=== PATIENT | female | born 1980 | race African-American/Black ===

== ENCOUNTER 2018-08-24 21:20 | Inpatient (IN) | payer OTHER ==
[2018-08-24] MEDS ORDERED: AMPICILLIN - 2 GM in SODIUM CHLORIDE 100 ML IVPB ONE (23:00)
[2018-08-24 23:19] VITALS: BMI 31.4
[2018-08-24 23:25] LABS: BASO % 0.3 % (0-2.0); EOS % 0.7 % (0-4.5); HEMATOCRIT 36.3 % (32.4-45.2); LYMPH % 12.3 % (8-40); MCH 28.4 pg (25.7-33.7); MEAN PLT VOLUME 8.2 fl (7.5-11.1); MONO % 11.2 % (3.8-10.2); NEUT % 75.5 % (42.8-82.8); PLATELET COUNT 198 K/MM3 (134-434); RBC 4.23 M/mm3 (3.60-5.2); WHITE BLOOD COUNT 8.7 K/mm3 (4.0-10.0)
[2018-08-24 23:39] LABS: ANION GAP 10 MMOL/L (8-16); BLOOD UREA NITROGEN 5 mg/dL (7-18); CHLORIDE 110 mmol/L (98-107); CO2 21 mmol/L (21-32); CREATININE 0.4 mg/dL (0.55-1.3); GLUCOSE,RANDOM 76 mg/dL (74-106); INR 0.88 (0.83-1.09); POTASSIUM 3.8 mmol/L (3.5-5.1); PROTHROMBIN TIME (PATIENT) 10.4 SEC (9.7-13.0); SODIUM 140 mmol/L (136-145)
[2018-08-24 23:42] LABS: ACTIVATED PTT 24.7 SECONDS (25.2-36.5)
[2018-08-24] MEDS ORDERED: OXYTOCIN 30 UNITS in 0.9% NS 30 UNIT/500 ML INFUS.BAG IVPB SCH (23:45)
[2018-08-24] MEDS ORDERED: DEXTROSE 5%-LACTATED RINGERS 1,000 ML IV SCH (23:45)
[2018-08-24] MEDS ORDERED: OXYTOCIN 30 UNITS in 0.9% NS 30 UNIT/500 ML INFUS.BAG IVPB ONE (23:56)
[2018-08-25] MEDS ORDERED: FENTANYL/BUPIVACAINE/NS/PF - PCEA - 50 ML DISP.SYRIN EP ONE (00:51)
[2018-08-25] MEDS: ELECTROLYTE-148 SOLN 1,000 ML IV SCH ×2 (01:00→03:00)
[2018-08-25] MEDS ORDERED: NALOXONE HCL 0.4 MG/ML VIAL IVPUSH PRN (01:56)
[2018-08-25] MEDS ORDERED: FENTANYL/BUPIVACAINE/NS/PF - PCEA - 50 ML DISP.SYRIN EP SCH ×2 (02:00→02:09)
[2018-08-25] MEDS ORDERED: AMPICILLIN SODIUM 1 GM VIAL ONE (02:49)
[2018-08-25] MEDS ORDERED: LIDOCAINE HCL 1% PRESERVATIVE FREE - 30ML VIAL ONE (02:49)
[2018-08-25] MEDS ORDERED: OXYTOCIN 20 UNITS in 0.9% NS 20 UNIT/1,000 ML INFUS.BAG IV ONE ×2 (02:50→05:47)
[2018-08-25] MEDS: AMPICILLIN - 1 GM in SODIUM CHLORIDE 100 ML IVPB SCH ×2 (03:00→13:43)
--- NOTE | 2018-08-25 03:39 | HP ---
Past Medical History - Admission History of Present Illness: 38 yo @ 39 3/7 wks by first trimester ultrasound, EDC 08/29/2018 complicated by: 1. Major depressive disorder - s/p multiple hospitalization (2001, 2002, 2004); on zoloft 150 mg daily; seeing Dr. Hammond ([facility]) Recent hospitalization April - May 2. Hx/o genital HSV - on daily suppression 3. AFP with increased risk of ONTD (MoM 4.35; n<2.5) Normal targeted anatomy 4. AMA - reassuring [id number] 5. 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 Prior delivery at 36 weeks - no [place] 7. GBS positive - no penicillin allergy Patient reports leakage of clear fluid, mild contractions. She reports movement, denies vaginal bleeding. History Source: Patient Limitations to Obtaining History: No Limitations - Past Medical History Cardiovascular: No: HTN Pulmonary: No: Asthma Gastrointestinal: No: GERD ...: 3 ...Para: 2 ...Term: 1 ...: 1 ...Spon : 0 ...Induced : 0 ...Multiple Gestation: 0 ...LMP: 11/21/17 ... Weeks Gestation by Dates: 39.3 ...EDC by Dates: 08/28/18 ...EDC by Sono: 08/29/18 Heme/Onc: No: Anemia - Past Surgical History Hx Myomectomy: No Hx Transabdominal Cerclage: No Additional Surgical History: [place] Teeth - Smoking History Smoking history: Former smoker Have you smoked in the past 12 months: Yes - Alcohol/Substance Use Hx Alcohol Use: No History of Substance Use: reports: None - Social History History of Recent Travel: No Home Medications - Allergies Allergies/Adverse Reactions: Allergies Allergy/AdvReac Type Severity Reaction Status Date / Time No Known Allergies Allergy Verified 08/24/18 22:43 - Home Medications Home Medications: Ambulatory Orders Vitamins (Sjr) - 1 tab PO DAILY 08/24/18 Sertraline HCl [Zoloft -] 150 mg PO DAILY 08/24/18 Valacyclovir HCl [Valtrex -] 500 mg PO BID 08/24/18 Family Disease History - Family Disease History Family History: Denies Review of Systems - Review of Systems Constitutional: reports: No Symptoms Cardiovascular: reports: No Symptoms Respiratory: reports: No Symptoms Gastrointestinal: reports: No Symptoms Genitourinary: reports: No Symptoms Neurological: reports: No Symptoms Endocrine: reports: No Symptoms Psychiatric: reports: No Symptoms Physical Exam - Maternity Vital Signs: Vital Signs Temperature 98.5 F 08/25/18 01:00 Pulse Rate 91 H 08/25/18 02:45 Respiratory Rate 19 08/25/18 02:45 Blood Pressure 97/6 L 08/25/18 02:45 O2 Sat by Pulse Oximetry (%) 100 08/25/18 02:45 Constitutional: Yes: Well Nourished, No Distress Cardiovascular: Yes: Regular Rate and Rhythm Lungs: Clear to auscultation - Abdominal Exam/OB Fundal Height: 40 Number of Fetuses: Single Contractions: Yes Regularity: Regular Intensity: Mild/Mod Category: I Accelerations: Non-Uniform Decelerations: None - Physical Exam Edema: No ...Motor Strength: WNL Psychiatric: Yes: Alert, Oriented - Labs Lab Results: CBC, BMP 08/24/18 23:00 08/24/18 23:00 PNL: O positive, antibody negative; HIV neg; RPR NR; HBs Ag neg; HCV neg; Rubella Immune; Varicella Immune; SMA negative, CF carrier (as above); Fx negative; [id number] WNL, AFP elevated (as above); GCT WNL; GBS positive Hemorrhage Risk Assessment - Risk Factors Medium Risk Factors: Yes: None High Risk Factors: Yes: None Risk Score: 1 Risk Level: Medium Risk Assessment/Plan 38 yo @ 39 3/7 wks, PROM, mild contractiosn 1. Admit to L&D 2. Plan for augmentation with pitocin 3. GBS positive, will start ampicllin 4. Will offer pain control upon request 5. Will proceed with expectant management
--- NOTE | 2018-08-25 04:54 | PN ---
Delivery - Delivery Vaginal Delivery: No Problems Type of Anesthesia: Epidural Episiotomy/Laceration: None EBL (cc): 400 Delivery, Single - Stages of Labor Date 1st Stage Initiatied: 08/25/18 Time 1st Stage Initiated: 00:30 Date 2nd Stage Initiated: 08/25/18 Time 2nd Stage Initiated: 04:22 Date of Delivery: 08/25/18 Time of Delivery: 04:32 Date Placenta Delivered: 08/25/18 Time Placenta Delivered: 04:40 Placenta: Yes: Spontaneous - Condition of Infant Gender: Female Position: Right, OA Total Hours ROM (Hrs/Mins): 7 hours 40 minutes - 1 Minute Total Score: 9 5 Minutes Total Score: 9 - [place] Feeding Plan Initial Plan: Elected not to breastfeed exclusively throughout hospitalization Remarks - Remarks Remarks: Patient progressed to fully dilated and at 0432 via delivered a viable female infant in MICA position, APGARs 9,9. Weight and length unknown at this time. Head delivered spontaneously followed by shoulders and body without difficulty. with spontaneous cry and placed on mother's abdomen. Nose and mouth was bulb suctioned. Cord was clamped and cut. Perineum and vagina examined, No lacerations were noted Placenta was delivered spontaneously and intact. 20 units of pitocin in 1 L IVF was given. All counts correct x 2. Mother and stable in LDR. EBL 400cc.
[2018-08-25] MEDS ORDERED: SENNOSIDES/DOCUSATE COMBO (SENNA PLUS) TABLET (UD) PO PRN (21:18)
[2018-08-25] MEDS ORDERED: WITCH HAZEL 50% (TUCKS) 40 PAD/JAR PAD TP PRN (21:19)
[2018-08-25] MEDS ORDERED: BISACODYL 10 MG SUPP.RECT RC PRN (21:19)
[2018-08-25] MEDS ORDERED: BENZOCAINE 28 GM HEMORRHOIDAL OINTMENT TP PRN (21:19)
[2018-08-25] MEDS ORDERED: BENZOCAINE 20% 57 GM BOTTLE TP PRN (21:19)
[2018-08-25] MEDS ORDERED: METHYLERGONOVINE MALEATE 0.2 MG/1 ML AMP IM PRN (21:20)
--- NOTE | 2018-08-26 08:29 | PN ---
Post Progress Note - Subjective Subjective: Patient without acute complaints. Reports tolerating oral intake without nausea or vomiting. Ambulating without dizziness. Denies fevers or chills. Pain well controlled with oral pain medication. without difficulty. Passing flatus. Post Day: 1 Type of Delivery: Vital Signs: Vital Signs Temperature 97.9 F 08/26/18 01:47 Pulse Rate 68 08/26/18 01:47 Respiratory Rate 18 08/26/18 01:47 Blood Pressure 107/57 L 08/26/18 01:47 O2 Sat by Pulse Oximetry (%) 100 08/25/18 04:15 Breast Exam: Yes: Soft Uterus: Yes: Fundus Firm, Fundus below umbilicus Abdomen/GI: Yes: Abdomen soft, Passing flatus. No: Abdominal Distention, Tender Lochia: Yes: Serosa Extremities: Yes: Calves non-tender. No: Edema Activity: Ambulating - Labs Labs: CBC WBC 8.7 K/mm3 (4.0-10.0) 08/24/18 23:00 RBC 4.23 M/mm3 (3.60-5.2) 08/24/18 23:00 Hgb 12.0 GM/dL (10.7-15.3) 08/24/18 23:00 Hct 36.3 % (32.4-45.2) 08/24/18 23:00 MCV 86.0 fl (80-96) 08/24/18 23:00 MCH 28.4 pg (25.7-33.7) 08/24/18 23:00 MCHC 33.0 g/dl (32.0-36.0) 08/24/18 23:00 RDW 16.0 % (11.6-15.6) H 08/24/18 23:00 Plt Count 198 K/MM3 (134-434) 08/24/18 23:00 MPV 8.2 fl (7.5-11.1) 08/24/18 23:00 Absolute Neuts (auto) 6.5 K/mm3 (1.5-8.0) 08/24/18 23:00 Neutrophils % 75.5 % (42.8-82.8) 08/24/18 23:00 Lymphocytes % 12.3 % (8-40) 08/24/18 23:00 Monocytes % 11.2 % (3.8-10.2) H 08/24/18 23:00 Eosinophils % 0.7 % (0-4.5) 08/24/18 23:00 Basophils % 0.3 % (0-2.0) 08/24/18 23:00 Nucleated RBC % 0 % (0-0) 08/24/18 23:00 Assessment/Plan 38 yo PPD # 1 s/p , afebrile, vital signs stable, doing well 1. Continue routine care. 2. Follow up AM CBC 3. Rh positive status, no rhogam indicated. 4. Encourage ambulation 5. Continue oral pain medication 6. Hx/o depression, on zoloft - mood stable Social work consult today 7. Anticipate discharge home day #2
[2018-08-26] MEDS: ACETAMINOPHEN 325 MG TABLET (FP) PO PRN (10:01)
[2018-08-26] MEDS: IBUPROFEN 600 MG TABLET (FP) PO PRN (10:01)
[2018-08-26 10:09] LABS: HEMATOCRIT 36.1 % (32.4-45.2); HEMOGLOBIN 11.6 GM/dL (10.7-15.3); MCH 27.8 pg (25.7-33.7); MCHC 32.2 g/dl (32.0-36.0); MEAN CELL VOLUME 86.5 fl (80-96); MEAN PLT VOLUME 8.4 fl (7.5-11.1); PLATELET COUNT 174 K/MM3 (134-434); RBC 4.17 M/mm3 (3.60-5.2); WHITE BLOOD COUNT 10.6 K/mm3 (4.0-10.0)
[2018-08-27] MEDS: IBUPROFEN 600 MG TABLET (FP) PO PRN (03:22)
[2018-08-27] MEDS: ACETAMINOPHEN 325 MG TABLET (FP) PO PRN (03:22)
[2018-08-27 08:39] VITALS: BP 115/78; PULSE 71; TEMP 97.8
--- NOTE | 2018-08-27 09:50 | PN ---
Post Progress Note - Subjective Subjective: Patient without acute complaints. Reports tolerating oral intake without nausea or vomiting. Ambulating without dizziness. Denies fevers or chills. Pain well controlled with oral pain medication. without difficulty. Passing flatus. Post Day: 2 Type of Delivery: Vital Signs: Vital Signs Temperature 97.8 F 08/27/18 07:15 Pulse Rate 71 08/27/18 07:15 Respiratory Rate 20 08/27/18 07:15 Blood Pressure 115/78 08/27/18 07:15 O2 Sat by Pulse Oximetry (%) 100 08/25/18 04:15 Breast Exam: Yes: Engorged, Cracked Nipples (bilaterally ) Uterus: Yes: Fundus Firm Abdomen/GI: Yes: Abdomen soft, Passing flatus, Tolerating PO. No: Abdominal Distention, Tender Lochia: Yes: Serosa Lochia, amount: Small Extremities: Yes: Calves non-tender, Edema (trace) Perineum: Yes: Intact Activity: Ambulating - Labs Labs: CBC WBC 10.6 K/mm3 (4.0-10.0) H 08/26/18 09:45 RBC 4.17 M/mm3 (3.60-5.2) 08/26/18 09:45 Hgb 11.6 GM/dL (10.7-15.3) 08/26/18 09:45 Hct 36.1 % (32.4-45.2) 08/26/18 09:45 MCV 86.5 fl (80-96) 08/26/18 09:45 MCH 27.8 pg (25.7-33.7) 08/26/18 09:45 MCHC 32.2 g/dl (32.0-36.0) 08/26/18 09:45 RDW 16.0 % (11.6-15.6) H 08/26/18 09:45 Plt Count 174 K/MM3 (134-434) 08/26/18 09:45 MPV 8.4 fl (7.5-11.1) 08/26/18 09:45 Absolute Neuts (auto) 6.5 K/mm3 (1.5-8.0) 08/24/18 23:00 Neutrophils % 75.5 % (42.8-82.8) 08/24/18 23:00 Lymphocytes % 12.3 % (8-40) 08/24/18 23:00 Monocytes % 11.2 % (3.8-10.2) H 08/24/18 23:00 Eosinophils % 0.7 % (0-4.5) 08/24/18 23:00 Basophils % 0.3 % (0-2.0) 08/24/18 23:00 Nucleated RBC % 0 % (0-0) 08/24/18 23:00 Assessment/Plan 38 yo PPD # 1 s/p , afebrile, vital signs stable,stable for discharge home today 1. Patient stable for discharge home today. 2. Patient encouraged to contact MD for: - Severe pain not controlled by oral pain medication - Fevers or chills - Nausea or vomiting, intolerance of oral intake 3. Hx/o major depression, mood stable Risk factors for PPD discussed Safety contract discussed 4. Plan to follow up in 3-4 weeks visit
--- NOTE | 2018-08-27 09:54 | DS ---
Physical Exam-[employer] Vital Signs: Vital Signs Temperature 97.8 F 08/27/18 07:15 Pulse Rate 71 08/27/18 07:15 Respiratory Rate 20 08/27/18 07:15 Blood Pressure 115/78 08/27/18 07:15 O2 Sat by Pulse Oximetry (%) 100 08/25/18 04:15 Labs: CBC, BMP 08/26/18 09:45 08/24/18 23:00 Delivery - Delivery Vaginal Delivery: No Problems Type of Anesthesia: Epidural Episiotomy/Laceration: None EBL (cc): 400 Delivery, Single - Stages of Labor Date 1st Stage Initiatied: 08/25/18 Time 1st Stage Initiated: 00:30 Date 2nd Stage Initiated: 08/25/18 Time 2nd Stage Initiated: 04:22 Date of Delivery: 08/25/18 Time of Delivery: 04:32 Time Placenta Delivered: 04:40 Placenta: Yes: Spontaneous - Condition of Computer Systems Analyst/Guitar Technician Present: No Infant Gender: Female Weight: 6 lb 13 oz Position: Right, OA Total Hours ROM (Hrs/Mins): 7 hours 40 minutes - 1 Minute Total Score: 9 5 Minutes Total Score: 9 - Feeding Plan Initial Plan: Elected not to breastfeed exclusively throughout hospitalization Discharge Summary Reason For Visit: LABOR Current Active Problems AMA (advanced maternal age) multigravida 35+ (Acute) Depression (Acute) Vaginal delivery (Acute) Procedures: Principal: vaginal delivery Other Procedures: augmentation with pitocin Hospital Course: Patient was admitted with PROM, early labor. She was started on pitocin augmentation and proceeded to deliver via a viable female . PPD # 1 patient ambulated, voiding, passing gas, tolerating oral intake and with adequate pain control. She was restarted on her outpatient meds, mood stable and had a SW consult. Plan for VNS after discharge, close follow up with therapist 1 week after discharge, close follow up in our office She fulfilled all criteria for discharge PPD #2 Condition: Good - Instructions Diet, Activity, Other Instructions: Physical activity Resume your normal everyday activity as tolerated no heavy lifting or exercise until seen by your surgeon. You may walk unlimited leigh ann of and climb stairs. You may resume driving the car when you feel safe and comfortable behind the wheel. No sexual activity as instructed. Diet There are no dietary restrictions. Eat healthy, high-fiber foods. Drink 6 to 8 glasses of liquid each day. This will assist in keeping your bowels are regular. Pain management You may take Tylenol or acetaminophen or Ibuprofen (for example, Motrin, Advil etc.) from my pain prescription medication is ordered should be taken as prescribed for moderate to severe pain. Call MD for any of the following: Severe pain not relieved by medication Fever of 101 or higher Excessive bleeding or drainage on dressing Inability to urinate Worsening of mood or depressive symptoms Referrals: Mayda Bang MD [Staff Physician] - Nils Emanuel MD [Staff Physician] - Disposition: HOME - Home Medications Comprehensive Discharge Medication List: Ambulatory Orders Vitamins (Sjr) - 1 tab PO DAILY 08/24/18 Sertraline HCl [Zoloft -] 150 mg PO DAILY 08/24/18 Valacyclovir HCl [Valtrex -] 500 mg PO BID 08/24/18
== END 2018-08-27 12:25 | disposition home or self-care (01) | DRG 807 ==
LOC: JLDR 21:20 → J3W 08-25 06:05
PROVIDERS: ADMIT Obstetrics & Gynecology; ATTEND Obstetrics & Gynecology
PROC: 10E0XZZ Delivery of Products of Conception, External Approach (ICD-10-PCS; principal; 2018-08-25)
DX: O42.92 Full-term premature rupture of membranes, unspecified as to length of time between rupture and onset of labor (principal); Z37.0 Single live birth; O99.343 Other mental disorders complicating pregnancy, third trimester; F32.9 Major depressive disorder, single episode, unspecified; Z3A.39 39 weeks gestation of pregnancy; Z22.330 Carrier of Group B streptococcus
CPT/HCPCS: 36415; 59409; 80048; 85025; 85027; 85610; 85730; 86593; 86850; 86900; 86901

== ENCOUNTER 2019-07-03 05:31 | Day surgery (SDC) | payer OTHER ==
[2019-07-02 15:35] VITALS: BMI 27.4
[2019-07-03] MEDS ORDERED: ACETAMINOPHEN 325 MG TABLET (FP) PO PRN (12:16)
[2019-07-03] MEDS ORDERED: IBUPROFEN 400 MG TABLET (FP) PO PRN (12:16)
[2019-07-03] MEDS ORDERED: oxyCODONE HCL 5 MG TABLET PO PRN (12:16)
[2019-07-03] MEDS ORDERED: ONDANSETRON 4 MG/2 ML VIAL IVPUSH PRN (12:17)
--- NOTE | 2019-07-03 12:22 | HP ---
Admitting History and Physical - Admission History of Present Illness: 38 yo desiring permanent sterilization, family history of ovarian cancer, for laparoscopic bilateral salpingectomy History Source: Patient Limitations to Obtaining History: No Limitations - Past Medical History Cardiovascular: No: HTN ...LMP Comment: 06/22/19 Psych: Yes: Depression (major depression, s/p hospitalization) - Past Surgical History Additional Past Surgical History: [place] Teeth - Smoking History Smoking history: Current every day smoker Have you smoked in the past 12 months: Yes Aproximately how many cigarettes per day: 10 - Alcohol/Substance Use Hx Alcohol Use: No History of Substance Use: reports: None - Social History History of Recent Travel: No Home Medications - Allergies Allergies/Adverse Reactions: Allergies Allergy/AdvReac Type Severity Reaction Status Date / Time lentils Allergy "hives, Verified 07/02/19 15:39 itchy throat" No Known Drug Allergies Allergy Verified 07/02/19 15:39 peas Allergy "hives,itchy Verified 07/02/19 15:39 throat" - Home Medications Home Medications: Ambulatory Orders Sertraline HCl [Zoloft -] 150 mg PO DAILY 08/24/18 Valacyclovir HCl [Valtrex -] 500 mg PO BID PRN 08/24/18 Family Disease History - Family Disease History Family History: Denies Review of Systems - Review of Systems Constitutional: reports: No Symptoms Cardiovascular: reports: No Symptoms Respiratory: reports: No Symptoms Gastrointestinal: reports: No Symptoms Breasts: reports: No Symptoms Reported Musculoskeletal: reports: No Symptoms Neurological: reports: No Symptoms Endocrine: reports: No Symptoms Psychiatric: reports: No Symptoms Physical Examination Constitutional: Yes: Well Nourished, No Distress, Calm Respiratory: Yes: Regular, CTA Bilaterally Gastrointestinal: Yes: Normal Bowel Sounds, Soft Psychiatric: Yes: Alert, Oriented Assessment/Plan 38 yo desiring permanent sterilization, family history of ovarian cancer, for laparoscopic bilateral salpingectomy 1. Consents reviewed and signed. Patient rejects all forms of non-permanent contraception 2. Preop labs reviewed 3. Ancef manager global communications 4. Will proceed with expectant management
[2019-07-03] MEDS ORDERED: LACTATED RINGERS SOLUTION 1,000 ML IV SCH (14:00)
[2019-07-03] MEDS ORDERED: BUPIVACAINE HCL/PF 0.5% (5 MG/ML) 30 ML VIAL IJ ONE (14:32)
[2019-07-03] MEDS ORDERED: ROCURONIUM BROMIDE 50 MG/5 ML SYRINGE ONE (14:50)
[2019-07-03] MEDS ORDERED: MIDAZOLAM HCL 2 MG/2 ML SINGLE DOSE VIAL ONE (14:50)
[2019-07-03] MEDS ORDERED: KETOROLAC TROMETHAMINE 30 MG/1 ML VIAL ONE (14:51)
[2019-07-03] MEDS ORDERED: PROPOFOL 20 ML ONE (15:06)
[2019-07-03] MEDS ORDERED: ALBUTEROL SO4 8 GM HFA INHALER IH ONE (15:08)
[2019-07-03] MEDS ORDERED: ceFAZolin SODIUM 1 GM VIAL IVPB ONE (15:25)
[2019-07-03] MEDS ORDERED: NEOSTIGMINE METHYLSULFATE 0.5 MG/ML - 10 ML MDV ONE (15:47)
[2019-07-03] MEDS ORDERED: GLYCOPYRROLATE 0.2 MG/1 ML VIAL ONE (15:47)
--- NOTE | 2019-07-03 16:39 | OP ---
Operative Note - Note: Operative Date: 07/03/19 Pre-Operative Diagnosis: desiring permanent sterilization Operation: laparoscopic bilateral salpingectomy Findings: normal appearing ovaries, fallopian tubes and uterus Post-Operative Diagnosis: Same as Pre-op Surgeon: Mayda Bang Environmental Protection Economist: Nils Emanuel Anesthesiologist/ASPHALT PAVING MACHINE OPERATOR: Dayanara Peck Anesthesia: General Specimens Removed: 1. Right fallopian tube; 2. Left fallopian tube Estimated Blood Loss (mls): 5 Drains, Volume Out (mls): 100 (urine output) Fluid Volume Replaced (mls): 1,200 Operative Report Dictated: Yes
[2019-07-03 18:33] VITALS: BP 119/74; PULSE 61; TEMP 97.9
--- NOTE | 2019-07-03 20:47 | OP ---
DATE OF OPERATION: 07/03/2019 PREOPERATIVE DIAGNOSIS: Desiring permanent sterilization. POSTOPERATIVE DIAGNOSIS: Desiring permanent sterilization. SURGEON: Arline Martinez M.D. IRRIGATING PUMP OPERATOR: Nils Emanuel M.D. ANESTHESIOLOGIST: JENY Peck ESTIMATED BLOOD LOSS: 5 URINE OUTPUT: 100 FLUIDS GIVEN: 1200 INDICATION: Patient is a 38-year-old desiring permanent sterilization and family history of ovarian cancer desiring permanent sterilization for undergoing bilateral salpingectomy. The risks, benefits, alternatives, and complications to procedure were discussed including infection, bleeding, damage to surrounding organs, uterine perforation. She expressed understanding, was brought to the operating room. DESCRIPTION OF PROCEDURE: When anesthesia was felt to be adequate, patient was prepped and draped in normal sterile fashion, placed in dorsal lithotomy position using Britton stirrups. A weighted speculum was placed in the patient's vagina. Vagina was retracted using Serrano retractor. Anterior lip of the cervix was grasped using an Allis clamp, and the cervix sufficiently dilated to accommodate a HUMI uterine manipulator which was placed. [place] was placed to gravity. Attention was brought to the abdomen. A 5-mm incision was made in the umbilicus and a Veress needle was used to confirm intraperitoneal placement, and the abdomen was insufflated using carbon dioxide gas to an operating pressure of 16 mmHg. The 5-mm trocar was placed under direct visualization. Attention was brought to the right lower quadrant, a 5-mm trocar was placed under direct visualization, and the left lower quadrant where a 5-mm trocar was placed under direct visualization. Evaluation of the abdominal cavity reveals mild adhesions to the anterior abdominal wall to the bowel. The uterus and ovaries and fallopian tubes were noted to be normal. Attention was brought to the left fallopian tube, it was followed to its fimbriated end, and it was resected using the LigaSure. It was removed and sent to pathology. Attention was brought to the right fallopian tube, it was followed to its fimbriated end, and it was also resected using the LigaSure. Good hemostasis was noted. Evaluation of the abdominal cavity revealed no perihepatic lesions, normal bilateral ovaries. The pneumoperitoneum was released. All incisions were closed using 4-0 Biosyn. The patient was awoken from anesthesia and brought to recovery room in stable condition. ARLINE MARTINEZ M.D. [facility]CO [id number]
== END 2019-07-03 18:15 | disposition home or self-care (01) ==
LOC: JASU-SURG 05:31
PROVIDERS: ATTEND Obstetrics & Gynecology
PROC: 0U574ZZ Destruction of Bilateral Fallopian Tubes, Percutaneous Endoscopic Approach (ICD-10-PCS; principal; 2019-07-03 14:00)
DX: Z30.2 Encounter for sterilization (principal)
CPT/HCPCS: 84703; 94760